=== PATIENT | male | born 1960 | race Caucasian/White ===

== ENCOUNTER → 2021-04-08 10:54 | Outpatient (CLI) | payer BC, SELFPAY ==
--- NOTE | ~2021-04-08 | CT_ITS ---
EXAMINATION: CT abdomen pelvis wo con DATE: 04/08/2021 11:32 INDICATION: Unspecified abdominal pain TECHNIQUE: Computed tomography (CT) of the abdomen and pelvis was performed without intravenous contr ast. The dose-length product (DLP) was 1249.54 mGy-cm. Automated exposure control and iterative recon struction technique were employed. COMPARISON: None FINDINGS: Minimal dependent atelectasis is present in the lung bases. The heart size is normal. The l iver, spleen, pancreas, gallbladder, and adrenal glands are normal. There are multiple nonobstructing stones of the right kidney which measure up to 7 mm. Multiple nonobstructing stones of the left kidn ey measure up to 5 mm. No stones are present in the ureters or bladder. There is no hydronephrosis or hydroureter. No pathologically enlarged abdominal or pelvic lymph nodes are identified. There is no free intraperitoneal gas or evidence of bowel obstruction. There is moderate lumbar spondylosis. Ther e is a fat-containing umbilical hernia. IMPRESSION: 1. No CT correlate for the patient's symptoms. 2. Bilateral nonobstructing nephrolithiasis. Reviewed, dictated and finalized at location B.
== END ==
PROVIDERS: PCP Family Medicine; Visit Provider Family Medicine
DX: N20.0 Calculus of kidney (principal); R10.9 Unspecified abdominal pain; M47.816 Spondylosis without myelopathy or radiculopathy, lumbar region; K42.9 Umbilical hernia without obstruction or gangrene
CPT/HCPCS: 74176

== ENCOUNTER → 2021-11-09 13:47 | Outpatient (CLI) | payer BC, SELFPAY ==
--- NOTE | ~2021-11-09 | MR_ITS ---
EXAMINATION: MR lumbar spine wo/w con DATE: 11/09/2021 14:41 INDICATION: Stenosis of lateral recess of lumbar spine. Low back pain. TECHNIQUE: Magnetic resonance imaging (MRI) of the lumbar spine was performed without and with 20 mL MultiHance intravenous contrast. COMPARISON: CT abdomen and pelvis 04/08/21 FINDINGS: There is 6 degrees levocurvature of lumbar spine. There is 3 mm anterolisthesis of L4 on L5 . There is increased T2-weighted signal intensity enhancement of the L4 and L5 vertebral bodies cente red at the L4-L5 disc. There is a focal defect in the L4 inferior endplate cortex that was present on the prior CT. There is mildly decreased disc height at L3-L4 and L4-L5. There is increased T2-weight ed signal intensity and enhancement in the disc on the left posteriorly. The distal spinal cord signa l intensity is normal. The conus medullaris is at L1-L2. The following disc levels are specifically d iscussed: L1-L2: The disc does not extend beyond the endplate margin. There is mild bilateral facet joint osteo arthritis. There is no neural foraminal stenosis. There is no central canal stenosis. L2-L3: There is a left foraminal extrusion. There is mild bilateral facet joint osteoarthritis. There is mild left neural foraminal stenosis. There is no central canal stenosis. L3-L4: The disc is mildly bulging. There is mild bilateral facet joint osteoarthritis. There is mild bilateral neural foraminal stenosis. There is no central canal stenosis. L4-L5: The disc is bulging and has an annular fissure. There is severe bilateral facet joint osteoart hritis. There is mild bilateral neural foraminal stenosis. There is enhancing granulation tissue in t he neural foramina and epidural space. There is contrast enhancement in the paraspinal regions and ar ound the posterior elements, consistent with recent surgery at this level. There is mild central roman l stenosis. There is moderate stenosis of the lateral recesses. L5-S1: The disc does not extend beyond the endplate margin. There is moderate right and severe left f acet joint osteoarthritis. There is mild left neural foraminal stenosis. There is no central canal st enosis. IMPRESSION: 1. Surgical changes at L4-L5 with abnormal signal in the disc and [id number] inflammation of the adjacent vertebral bodies and surrounding soft tissues. Correlate clinically for discitis/oste omyelitis. 2. Mild lumbar spondylosis. Reviewed, dictated and finalized at location A. IMPRESSION: 1. Surgical changes at L4-L5 with abnormal signal in the disc and greater-than- expected inflammation of the adjacent vertebral bodies and surrounding soft tis sues. Correlate clinically for discitis/osteomyelitis. 2. Mild lumbar spondylosis.
[2021-11-09 14:19] LABS: Estimated Glomerular Filt Rate 52
== END ==
PROVIDERS: PCP Family Medicine; Visit Provider Urology
DX: M48.061 Spinal stenosis, lumbar region without neurogenic claudication (principal); Z98.890 Other specified postprocedural states; M47.816 Spondylosis without myelopathy or radiculopathy, lumbar region
CPT/HCPCS: 72158; A9577

== ENCOUNTER 2022-05-24 10:27 | Outpatient (CLI) | payer BC, SELFPAY ==
--- NOTE | 2022-05-24 10:34 | ECG_ITS ---
Measurements Intervals [place] Rate: 62 P: 40 LA: 170 QRS: 11 QRSD: 106 T: 28 QT: 401 QTc: 409 Interpretive Statements SINUS RHYTHM NORMAL ECG NO PREVIOUS ECG AVAILABLE FOR COMPARISON Electronically Signed On 05-24-2022 15:34:15 VICE PRESIDENT OF PRODUCT MARKETING by Serjio Moraes M.D.
== END 2022-05-24 10:28 | disposition home or self-care (01) ==
LOC: ANHCARD 10:29
PROVIDERS: PCP Family Medicine; Visit Provider Neurological Surgery
DX: Z01.818 Encounter for other preprocedural examination (principal)
CPT/HCPCS: 93005

== ENCOUNTER 2022-06-09 09:53 | Outpatient (CLI) | payer BC, SELFPAY ==
[2022-06-09 10:54] LABS: Anion Gap 7 mmol/L (8-16); Blood Urea Nitrogen 24 mg/dL (9-20); Calcium 9.5 mg/dL (8.4-10.2); Carbon Dioxide 28 mmol/L (22-30); Chloride 105 mmol/L (98-107); Estimated Glomerular Filt Rate 52; Glucose 131 mg/dL (65-110); Potassium 4.6 mmol/L (3.4-5.0); Sodium 140 mmol/L (137-145)
== END 2022-06-09 09:54 | disposition home or self-care (01) ==
PROVIDERS: Anesthesiology; PCP Family Medicine; Visit Provider Neurological Surgery
DX: M47.816 Spondylosis without myelopathy or radiculopathy, lumbar region (principal); Z79.899 Other long term (current) drug therapy; Z01.818 Encounter for other preprocedural examination
CPT/HCPCS: 36415; 80048; 86850; 86900; 86901

== ENCOUNTER 2022-06-28 16:49 | Inpatient (IN) | payer BC, SELFPAY ==
--- NOTE | 2022-06-01 11:03 | PC.NURSE ---
Addendum entered by Dilma Nathan RN 06/16/22 14:43: PT TO ARRIVE AT 1100 ON 06/28/22 FOR SURGERY AT 1300. Original Note: Report to the Outpatient Waiting Room, entrance under the green pavilion located off [facility], at time 6:30 on date 06/14/22. Planned Procedure Time: 8:30. Time changes happen often and if your time is changed the preop area will call you the afternoon before. - You and your visitor will be asked to self-screen and do not enter if you have any COVID symptoms. - Only one visitor is requested with a max of two and NO children visitors are allowed at this time. - The patient visitor may be requested to leave or wait in car when not with patient due to distancing restrictions. - A mask is REQUIRED within the hospital. Patients may have clear liquids (water, carbonated beverages, clear teas, apple juice) until 3 hours prior to surgery (5:30) with a maximum of 20 ounces. - No food from midnight until time of surgery Take the following medications with a SIP of water the morning of surgery: LYRICA, TIZANIDINE, OXYCODONE Medications to discontinue per physician: VITAMINS/SUPPLEMENTS Date to take last dose: 06/10/22 Please no make-up, nail slovenian, hairspray, perfume, deodorant, or body powder the day of surgery. No jewelry (including any body piercings) or valuables the day of surgery, leave them at home. Please take a shower or bath the night before, or the morning of, surgery with an antibacterial soap. Wear comfortable, loose fitting clothing. - Jewelry must be removed prior to entering the operating room. Rings and piercings that are not removed may be cut off. - The hospital will not accept responsibility for valuables. - Please leave all valuables, including medications, at home the day of surgery. If you are going home after surgery, a licensed septic pump truck driver must drive you home. - NO public transportation without another adult if you receive anesthesia. - We recommend that an adult stay with you for 24 hours following discharge. - We also recommend that you do not drive, make important decision, drink alcoholic beverages, or take any drugs that were not prescribed by your health care provider for at least 24 hours after your discharge time. Follow any additional instructions given to you from your surgeon. If you or anyone in your household have experienced Covid symptoms in the past week, please notify your surgeon or the nurse liaison at the phone number below for possible testing. Telephone instructions given to JONATHAN SLAUGHTER and asked if any additional questions and then verbalized understanding. Patient advised to call surgeon office or pre surgery nurse liaison [phone] if any additional questions.
[2022-06-01 11:15] VITALS: BMI 41.6
--- NOTE | 2022-06-16 14:43 | PC.NURSE ---
Pt states no changes in medications or health history since initial interview. New pre-op instructions reviewed with pt. Pt denies further questions regarding instructions at this time.
--- NOTE | 2022-06-27 14:16 | WPDANESEPPF ---
Anes - Initial Pre Proc Eval Procedure: Operation Date: 06/28/22 09:30 Proposed Procedures p L 4-5 Posterior Lumbar Interbody Fusion - Johnnie Espinal MD Date/Time: 06/27/22 14:16 Surgeon: Johnnie Espinal MD Pre Op Diagnosis: L4-5 Spondylosis Steve Neuroforaminal Stenosis Patient Data Age: 62 Gender: M Height: 1.78 m Weight: 131.6 kg Allergies Allergy/AdvReac Type Severity Reaction Status Date / Time shellfish derived Allergy Severe Anaphylaxis Verified 06/28/22 07:13 iodine Allergy Mild Anaphylaxis Verified 06/28/22 07:13 Home Medications Medication Instructions Recorded Confirmed Type amitriptyline 10 mg tablet 20 mg PO QHS 12/20/21 06/28/22 History irbesartan 300 mg tablet 300 mg PO HS 12/20/21 06/28/22 History melatonin 5 mg capsule 5 mg PO HS 12/20/21 06/28/22 History tamsulosin 0.4 mg capsule 0.4 mg PO HS 12/20/21 06/28/22 History testosterone 200 mg implant pellet 200 mg subcut ONCE 12/20/21 06/28/22 History Beet Root 1 tablet PO HS 06/01/22 06/28/22 History chlorthalidone 25 mg tablet 12.5 mg PO DAILY 06/01/22 06/28/22 History metformin 500 mg tablet,extended 500 mg PO HS 06/01/22 06/28/22 History release 24 hr oxycodone-acetaminophen 5 mg-325 1 tablet PO Q8H PRN Pain 06/01/22 06/28/22 History mg tablet pregabalin 100 mg capsule 150 mg PO QNOON 06/01/22 06/28/22 History pregabalin 100 mg capsule 300 mg PO BID 06/01/22 06/28/22 History rosuvastatin 10 mg tablet 10 mg PO HS 06/01/22 06/28/22 History tizanidine 4 mg tablet 4 mg PO TID 06/01/22 06/28/22 History turmeric 400 mg capsule 400 mg PO HS 06/01/22 06/28/22 History ECG: Date of Service: 05/24/22 Procedure(s): CA 12 lead EKG Accession Number(s): [id number] cc: ~ ? Measurements Intervals? [place]? Rate: ? 62 ? P:? 40 CO: ? 170? QRS:? 11 QRSD: ? 106? T:? 28 QT: ? 401? QTc:? 409? Interpretive Statements SINUS RHYTHM NORMAL ECG NO PREVIOUS ECG AVAILABLE FOR COMPARISON Electronically Signed On 05-24-2022 15:34:15 FINANCIAL ANALYST INTERN by Serjio Moraes M.D. Patient hx anesthesia problems: none Family hx anesthesia problems: none Results Review: All pre-operative results and documents have been reviewed as part of the pre-operative evaluation. [facility] Past Medical History Medical History (Updated 06/27/22 @ 14:18 by Roc Kemp MD) BPH (benign prostatic hyperplasia) Chronic narcotic use Diabetes Foraminal stenosis of lumbar region HTN (hypertension) Hypercholesterolemia Lumbar spondylosis Morbid obesity with BMI of 40.0-44.9, adult REGGIE on CPAP Spondylolisthesis at L4-L5 level Surgical History Surgical History (System 02/18/22 @ 09:19 by Peewee Blair) H/O eye surgery H/O knee surgery H/O shoulder surgery Hx of appendectomy Family History Family History (System 02/18/22 @ 09:19 by Peeewe Blair) Other Diabetes mellitus Heart disease Social History Social History (System 02/18/22 @ 09:19 by Peewee Blair) Smoking status: Never smoker Alcohol intake: current Alcohol use details: A COUPLE/YEAR Substance use: never Substance use type: does not use Living arrangements: with family Spiritual care concerns: No Anes - Eval Final PreProcedure Day of Procedure 06/27/22 14:16 Patient weight: morbidly obese Heart: regular rate and rhythm Lungs: clear to auscultation and normal air movement Airway: Mallampati scale class II Neurological: alert and oriented Last oral intake: >/= 8 hours ASA classification: III Emergent: no Anesthetic plan: proceed Anesthesia type and monitoring: general ETT Results Review: All pre-operative results and documents have been reviewed as part of the pre-operative evaluation. Informed Con
[2022-06-28] VITALS (23 sets, daily range): BP systolic 106–151; BP diastolic 70–103; PULSE 69–117; RESP 12–20; TEMP 36.1–37.2; O2SAT 92–100
--- NOTE | ~2022-06-28 | XR_ITS ---
EXAMINATION: XR lumbar spine 2-3V DATE: 07/05/2022 14:08 INDICATION: Assess spinal fusion instrumentation placement. TECHNIQUE: Anteroposterior and lateral views of the lumbar spine, and cone-down lateral view of the l umbosacral junction were obtained. COMPARISON: Lumbar spine MR dated FINDINGS: L4 laminectomy. Midline instrumented anterior and posterior L4-L5 spinal fusion with interbody bone g raft cages and bilateral vertical anna and pedicle screw fixations which are in expected position. No significant change in 2-3 mm anterolisthesis L4 on L5. Vertebral body heights are normal. Mild disc h eight loss at L3-L4. Preserved disc heights but with endplate osteophytes at a few levels in the lowe r thoracic and upper lumbar spine. Sacral arches are intact. No evident fractures. Mild bilateral sac roiliac osteoarthritis. There are few small renal stones, the largest measuring up to 3 mm, at the lo wer pole of the left kidney IMPRESSION: 1. L4 laminectomy and combined instrumented L4-L5 anterior and posterior spinal fusion with unchanged 2-3 mm anterolisthesis L4 on L5. 2. Mild lumbar and lower thoracic spondylosis. 3. Left nephrolithiasis. Reviewed, dictated and finalized at location A. COURSE BARRIER ATTENDANT
--- NOTE | ~2022-06-28 | XR_ITS ---
EXAMINATION: XR fluoroscopy no charge DATE: 06/28/2022 13:42 INDICATION: L4-L5 posterior lumbar intervertebral fusion. TECHNIQUE: A single lateral fluoroscopic views of lumbar spine was obtained. I was not present. Fluor oscopy exposure time was 7 seconds. COMPARISON: Lumbar spine MRI 11/09/2021 FINDINGS: There is 3 mm anterolisthesis of L4 on L5. There are changes of anterior and posterior fusi on procedures at L4-L5 with interbody devices and pedicle screws. There is mildly decreased disc heig ht at L3-L4. IMPRESSION: 1. Anterior and posterior fusion procedures at L4-L5. Reviewed, dictated and finalized at location A. UIT BOARD ASSEMBLER
[2022-06-28] MEDS: LACTATED RINGERS 1,000 ML 30 ML IV CONT ×2 (07:56→14:01)
--- NOTE | 2022-06-28 09:43 | PM.IMHP ---
H&P: HPI History of Present Illness Date/Time: 06/28/22 09:43 Chief Complaint: Back and leg pain Narrative: Mr. Lake is a 62-year-old gentleman with back and leg pain related to pathology at L4-5 and presents for posterior lumbar interbody fusion. He has not changed appreciably since we last saw him. He is not having any bowel or bladder difficulty. He is not having specific muscle group weakness or dermatomal numbness. Review of Systems Review of Systems: Patient denies shortness of breath, cough, fever, chills, nausea, vomiting, weight loss, weight gain, chest pain, dysuria. He has back and leg pain and back stiffness as above. His review of systems otherwise negative on 12 systems except as noted PMFSH Past Medical History Medical History BPH (benign prostatic hyperplasia) Chronic narcotic use Diabetes Foraminal stenosis of lumbar region HTN (hypertension) Hypercholesterolemia Lumbar spondylosis Morbid obesity with BMI of 40.0-44.9, adult REGGIE on CPAP Spondylolisthesis at L4-L5 level Surgical History Surgical History H/O eye surgery H/O knee surgery H/O shoulder surgery Hx of appendectomy Family History Family History Other Diabetes mellitus Heart disease Social History Social History Smoking status: Never smoker Alcohol intake: current Alcohol use details: A COUPLE/YEAR Substance use: never Substance use type: does not use Living arrangements: with family Spiritual care concerns: No Meds Home Medications and Allergies Home Medications Medication Instructions Recorded Confirmed Type amitriptyline 10 mg tablet 20 mg PO QHS 12/20/21 06/28/22 History irbesartan 300 mg tablet 300 mg PO HS 12/20/21 06/28/22 History melatonin 5 mg capsule 5 mg PO HS 12/20/21 06/28/22 History tamsulosin 0.4 mg capsule 0.4 mg PO HS 12/20/21 06/28/22 History testosterone 200 mg implant pellet 200 mg subcut ONCE 12/20/21 06/28/22 History Beet Root 1 tablet PO HS 06/01/22 06/28/22 History chlorthalidone 25 mg tablet 12.5 mg PO DAILY 06/01/22 06/28/22 History metformin 500 mg tablet,extended 500 mg PO HS 06/01/22 06/28/22 History release 24 hr oxycodone-acetaminophen 5 mg-325 1 tablet PO Q8H PRN Pain 06/01/22 06/28/22 History mg tablet pregabalin 100 mg capsule 150 mg PO QNOON 06/01/22 06/28/22 History pregabalin 100 mg capsule 300 mg PO BID 06/01/22 06/28/22 History rosuvastatin 10 mg tablet 10 mg PO HS 06/01/22 06/28/22 History tizanidine 4 mg tablet 4 mg PO TID 06/01/22 06/28/22 History turmeric 400 mg capsule 400 mg PO HS 06/01/22 06/28/22 History Allergies Allergy/AdvReac Type Severity Reaction Status Date / Time shellfish derived Allergy Severe Anaphylaxis Verified 06/28/22 07:13 iodine Allergy Mild Anaphylaxis Verified 06/28/22 07:13 Vital Signs Vital Signs - 24 hr 06/28/22 07:10 Temperature 97.0 F L Pulse Rate 69 Respiratory Rate 20 Blood Pressure 106/77 Pulse Oximetry 98 Oxygen Delivery Room Air Exam Narrative: Strength is 5/5 in all muscle groups of the bilateral lower extremities. Sensation is intact to light touch throughout extremities. Regular rate and rhythm Breathing is unlabored. He is able to speak complete sentences without difficulty. Assessment and Plan Assessment and plan (1) Foraminal stenosis of lumbar region: Code(s): M48.061 - Spinal stenosis, lumbar region without neurogenic claudication Status: Acute (2) Spondylolisthesis at L4-L5 level: Code(s): M43.16 - Spondylolisthesis, lumbar region Status: Acute (3) Lumbar spondylosis: Code(s): M47.816 - Spondylosis without myelopathy or radiculopathy, lumbar region Status: Acute Plan Mr. Lake is a 62-year-old gentleman w
--- NOTE | 2022-06-28 09:45 | WPDHPUPDATE1 ---
History and Physical Update Update Date/Time: 06/28/22 09:45 History and Physical has been reviewed, including an updated exam of the patient. There are NO changes in the patient's condition. Risks, benefits, and alternatives have been discussed and questions answered. Patient agrees to proceed with procedure.
[2022-06-28] MEDS: ceFAZolin 3 GM/D5W 100 ML 100 ML IVPB (10:14)
--- NOTE | 2022-06-28 10:46 | SUR.OPER ---
Patient wedding band on left ring finger discovered during induction of anesthesia. Patient stated he is unable to remove wedding band and declined cutting, Preop RN notified to obtain waiver from patient's spouse as patient had already received anesthetics
[2022-06-28] MEDS: BUPIVACAINE/EPINEPHRINE 0.5% 30 ML VIAL INFILTRATE (11:02)
[2022-06-28 11:39] LABS: Glucose Point of Care 105 mg/dl (65-105)
[2022-06-28 14:11] LABS: Glucose Point of Care 160 mg/dl (65-105)
[2022-06-28] MEDS: fentaNYL CITRATE INJ (*CRX) 100 MCG/2 ML VIAL 25 MCG IV PUSH ×4 (14:30→15:06)
[2022-06-28] MEDS: HYDROmorphone HCL INJ (*CRX) 1 MG/ML SYR 0.5 MG IV PUSH ×6 (15:39→22:26)
--- NOTE | 2022-06-28 16:00 | SUR.PHASEI ---
1555: Patient meets PACU discharge criteria, unit bed unavailable at this time. Patient placed in extended recovery status.
--- NOTE | 2022-06-28 17:05 | ADMGEN ---
This patient, Zbigniew Lake III, was admitted to Medical Room 342-01. Patient/family oriented to hospital policies and general routines including ID bracelet, bed and alarms, visiting hours, pain management, procedures, bathroom and other care routines, personal items, smoking policy, room service/diet, and visiting hours. Information on how to activate the Rapid Response Team has been discussed. Patient/Family are encouraged to report perceived risks to care and to ask questions if they do not understand what they are told or what they should do.
--- NOTE | 2022-06-28 17:06 | PC.NURSE ---
Pt received to room 342 at 1705. Report was taken from Ana in PACU. is at bedside
[2022-06-28] MEDS: PREGABALIN (*CRX) 75 MG CAPSULE 300 MG PO (18:34)
[2022-06-28] MEDS: oxyCODONE/ACETAMINOPHEN (*CRX) 10-325 MG TABLET 1 TAB PO ×2 (18:49→23:26)
[2022-06-28] MEDS: MELATONIN 5 MG TABLET PO (20:20)
[2022-06-28] MEDS: ROSUVASTATIN 10 MG TABLET PO (20:20)
[2022-06-28] MEDS: metFORMIN HCL XR 500 MG TAB.SR.24H PO (20:20)
[2022-06-28] MEDS: IRBESARTAN 150 MG TABLET 300 MG PO (20:20)
[2022-06-28] MEDS: AMITRIPTYLINE HCL 10 MG TABLET 20 MG PO (20:20)
[2022-06-28] MEDS: DOCUSATE SODIUM 100 MG CAPSULE PO (20:20)
[2022-06-28] MEDS: TAMSULOSIN HCL 0.4 MG CAPSULE PO (20:20)
[2022-06-28] MEDS: TIZANIDINE HCL 2 MG TABLET PO (22:26)
[2022-06-29] MEDS: HYDROmorphone HCL INJ (*CRX) 1 MG/ML SYR 0.5 MG IV PUSH ×4 (00:40→10:52)
[2022-06-29 02:10] VITALS: PULSE 97; O2SAT 99
[2022-06-29] MEDS: oxyCODONE/ACETAMINOPHEN (*CRX) 10-325 MG TABLET 1 TAB PO ×3 (03:40→15:37)
[2022-06-29 03:49] VITALS: BP 130/74; PULSE 98; RESP 18; TEMP 36.7; O2SAT 98
--- NOTE | 2022-06-29 07:36 | WPDANESPN ---
Anes - Prog Note Post-Op Date/Time: 06/29/22 07:36 Cardiovascular status: normal Respiratory status: normal Airway patency: baseline Mental status: baseline Post-Op hydration status: normal Vital Signs: Last Vital Signs Temp 98.1 F 06/29/22 03:49 Pulse 98 06/29/22 03:49 Resp 18 06/29/22 03:49 BP 130/74 06/29/22 03:49 Pulse Ox 98 06/29/22 03:49 O2 Del Method Autopap 06/29/22 02:10 O2 Flow Rate 3 06/28/22 20:00 Pain Score (VAS): 5 I/O: Intake & Output 06/28/22 06/28/22 06/29/22 15:59 23:59 07:59 Intake Total 0 900 Output Total 330 Balance -330 900 06/28/22 06/28/22 09:11 14:09 POC Capillary Glucose 105 160 H Patient Feedback: Patient satisfied with anesthetic care.
[2022-06-29 07:49] VITALS: BP 164/91; PULSE 100; RESP 18; TEMP 36.3; O2SAT 96
[2022-06-29] MEDS: TIZANIDINE HCL 2 MG TABLET PO ×2 (08:28→20:48)
[2022-06-29] MEDS: ONDANSETRON INJ 4 MG/2 ML VIAL IV PUSH (09:22)
[2022-06-29] MEDS: CHLORTHALIDONE 12.5 MG TAB PO (09:48)
[2022-06-29] MEDS: DOCUSATE SODIUM 100 MG CAPSULE PO ×2 (09:48→20:48)
[2022-06-29] MEDS: PREGABALIN (*CRX) 75 MG CAPSULE 300 MG PO ×2 (09:49→17:39)
[2022-06-29 11:49] VITALS: BP 137/67; PULSE 91; RESP 18; TEMP 36.4; O2SAT 98
[2022-06-29] MEDS: HYDROmorphone HCL INJ (*CRX) 1 MG/ML SYR IV PUSH ×4 (13:21→23:41)
--- NOTE | 2022-06-29 16:09 | PC.NURSE ---
Pt has on going complaints of headache despite medications dosage changes. Pt states he has a history of migraines. Dressing has been dry and intact upon assessment with no signs of drainage. is aware and is to see pt today.
[2022-06-29 20:00] VITALS: PULSE 82; RESP 20; O2SAT 93
[2022-06-29] MEDS: ROSUVASTATIN 10 MG TABLET PO (20:48)
[2022-06-29] MEDS: metFORMIN HCL XR 500 MG TAB.SR.24H PO (20:48)
[2022-06-29] MEDS: AMITRIPTYLINE HCL 10 MG TABLET 20 MG PO (20:48)
[2022-06-29] MEDS: IRBESARTAN 150 MG TABLET 300 MG PO (20:48)
[2022-06-29] MEDS: MELATONIN 5 MG TABLET PO (20:48)
--- NOTE | 2022-06-29 20:48 | W.PM.PROC2 ---
Procedure Note - Detailed Date of Procedure 06/29/22 Pre-op Diagnosis L4-5 Spondylosis Steve Neuroforaminal Stenosis Post-op Diagnosis Same Procedure Performed L4-5 complete laminectomy and bilateral facetectomy, L4-5 complete diskectomy and interbody arthrodesis utilizing titanium interbody device and local autograft, L4-5 pedicle screw instrumentation Surgeon Johnnie Espinal MD Change Number Operator Rosa Anesthesia General Indications Zbigniew is a 62-year-old gentleman with back and leg pain related to the above pathology presents for decompression fusion at L4-[address] posterior lumbar interbody fusion. Description of Procedure The patient was brought to the operating room in the supine position, was sedated, intubated and placed under general anesthesia in routine fashion. He was then turned into the prone position on a Loki frame. The area of operation on his back was examined, marked for incision, prepped and draped in routine sterile fashion. Incision was marked over the L4 and L5 spinous processes in the midline. This area was injected with 0.5% lidocaine with [id number] epinephrine. Intravenous antibiotics given prior to incision. Incision was made with a 10 blade scalpel down to the lumbodorsal fascia. A subperiosteal dissection of the muscle and soft tissue away from spinous process and lamina at L4-L5 bilaterally was performed with a subperiosteal elevator and Bovie cautery. A verifying x-rays obtained to verify the level of operation. The L4 spinous process was removed to the lower sleeve rongeur. Kerrison punches, curved curettes and a Leksell rongeur were used to remove lamina in the midline until the soft contents of the canal encountered. A Midas Mike drill was used to resect the pars bilaterally. The inferior taken process and facet of L4 could then be removed bilaterally. These plus the spinous process were stripped free of soft tissue and morselized for later use as interbody autograft. Kerrison punches and curved curettes were used to define a plane with the dura and removed bone and ligament flush with the pedicle and through the foramen widely decompressing the exiting nerve roots. With the thecal sac retracted and protected the disc spaces entered bilaterally using an 11 blade scalp. Scrapers of various sizes, curettes of various configurations, a pituitary rongeur and a rasp were used to remove as much cartilaginous endplate and disc material as possible down bleeding cortical 5 surfaces on the opposing bones. During this part of the operation on the right side dura was found to be adherant to the anterior aspect of the canal and the complex dural tear occurred on the right side. Upon inspection it did not appear possible to completely repair the tear. Nerve roots were apparent but no injury to nerve roots were noted. At the end of the case this was repaired by placing DuraGen against the torn area wrapping it underneath the dura and placing fat obtained from the subcutaneous area against this DuraGen and apllying DuraSeal over it. Because of the tear a single long interbody device was placed from the left after the disc space was filled with local autograft bone medially and anteriorly. The interbody device had also been filled with local autograft bone. Pedicle screw instrumentation was performed by observing and palpating the pedicle while a hole was made in the superior to the process above the pedicle using a Midas Mike drill. Pedicle was then cannulated with a pedicle probe, checked for continuity with ball probe, tapped with a 5.5 mm tap and a 6.5 x 50 mm screw was placed into each pedicle on each side. Alcon placed into the screw heads and secured in position using the caps for that purpose. These were definitively tightened with a torque and anti torque device. Verifying x-rays obtained to verify good position of the pedicle screws and the interbody device. This was confirmed. Wound was copiously irrigated with ba
[2022-06-29] MEDS: TAMSULOSIN HCL 0.4 MG CAPSULE PO (20:49)
[2022-06-29 20:55] VITALS: BP 139/68; PULSE 82; RESP 20; TEMP 36.9; O2SAT 93
--- NOTE | 2022-06-29 21:22 | WPDNEUROSGPN ---
Progress Note: A&P Assessment and Plan (1) Dural tear: Code(s): G96.11 - Dural tear Status: Acute (2) Foraminal stenosis of lumbar region: Code(s): M48.061 - Spinal stenosis, lumbar region without neurogenic claudication Status: Acute (3) Spondylolisthesis at L4-L5 level: Code(s): M43.16 - Spondylolisthesis, lumbar region Status: Acute (4) Lumbar spondylosis: Code(s): M47.816 - Spondylosis without myelopathy or radiculopathy, lumbar region Status: Acute Plan Mr. Lake is doing well his operation and his wound remains dry. He is having symptoms related to the dural tear. We will have him remain flat through the night tonight and assess his situation the morning. I prescribed Decadron for the discomfort in his leg and headache. I will given 10 mg now and 4 mg q.6 hours. He persists in having headache that we will have to slowly Begin the process of raising is set and having him ambulate. We will continue to watch his wound and dressing. Subjective Date/time seen: 06/29/22 21:22 Interval history: Mr. Lake is postop day 1 status post L4-5 posterior lumbar interbody fusion complicated by a complex dural tear. He has been flat in bed for our order. He is complaining of a significant headache and pain in his right lower extremity posteriorly when he turns or moves the leg. He has not had any leaking from his wound. He is not having any bowel or bladder difficulty. His legs are functioning normally. Exam Narrative: Strength is 5/5 in all muscle groups of the bilateral lower extremities. Sensation is intact to light touch throughout the lower extremities. His dressing and wound are clean, dry and intact. Objective Data Vital Signs Vital Signs: Vital Signs - 24 hr 06/28/22 23:49 06/28/22 23:54 06/29/22 02:10 Temperature 98.6 F Pulse Rate 98 101 H 97 Respiratory Rate 20 Blood Pressure 129/70 Pulse Oximetry 99 98 99 Oxygen Delivery Autopap Autopap 06/29/22 03:49 06/29/22 07:49 06/29/22 11:49 Temperature 98.1 F 97.4 F L 97.6 F Pulse Rate 98 100 91 Respiratory Rate 18 18 18 Blood Pressure 130/74 164/91 H 137/67 Pulse Oximetry 98 96 98 Oxygen Delivery 06/29/22 20:55 Temperature 98.4 F Pulse Rate 82 Respiratory Rate 20 Blood Pressure 139/68 Pulse Oximetry 93 Oxygen Delivery Intake/Output Intake/Output: Intake & Output 06/26/22 06/27/22 06/28/22 06/29/22 23:59 23:59 23:59 23:59 Intake Total 900 3870 Output Total 330 Balance 570 3870 Meds/Results Medications: Active Medications Generic Name Dose Route Start Last Admin Trade Name Freq PRN Reason Stop Dose Admin Al Hydrox/Mg Hydrox/Simethicone 20 ml 06/28/22 16:49 Mag Hydrox/Al Hydrox/Simeth 30 Ml Udc PO Q4H PRN Indigestion/Heartburn Amitriptyline HCl 20 mg 06/28/22 21:00 06/29/22 20:48 Amitriptyline Hcl 10 Mg Tablet PO 20 mg QHS VERONICA Administration Bisacodyl 10 mg 06/28/22 16:49 Bisacodyl 10 Mg Suppository RECTAL DAILY PRN Constipation Chlorthalidone 12.5 mg 06/29/22 09:00 06/29/22 09:48 Chlorthalidone 12.5 Mg Tab PO 12.5 mg DAILY VERONICA Administration Dexamethasone Sodium Phosphate 4 mg 06/30/22 00:00 Dexamethasone Sod Phos Inj 4 Mg/Ml Vial IV PUSH Q6HR VERONICA Docusate Sodium 100 mg 06/28/22 21:00 06/29/22 20:48 Docusate Sodium 100 Mg Capsule PO 100 mg Q12HR VERONICA Administration Hydromorphone HCl 1 mg 06/29/22 11:30 06/29/22 20:47 Hydromorphone Hcl Inj (*Crx) 1 Mg/Ml Syr IV PUSH 1 mg Q3H PRN Administration Pain Rated 7-10 Cefazolin Sodium 1 gm in 50 mls @ 100 mls/hr 06/28/22 18:00 06/29/22 18:09 Ancef 1 Gm/D5w 50 Ml Pm IVPB Infused Q8H VERONICA Infusion Irbesartan 300 mg 06/28/22 21:00 06/29/22 20:48 Irbesartan 150 Mg Tablet PO 300 mg HS VERONICA Administration Melatonin 5 mg 06/28/22 21:00 06/29/22 20:48 Melatonin 5 Mg Tablet PO 5
[2022-06-29] MEDS: DEXAMETHASONE SOD PHOS INJ 4 MG/ML VIAL IV PUSH (23:41)
[2022-06-30] MEDS: HYDROmorphone HCL INJ (*CRX) 1 MG/ML SYR IV PUSH ×6 (04:14→21:30)
[2022-06-30 05:40] VITALS: BP 128/67; PULSE 81; RESP 18; TEMP 36.7; O2SAT 96
[2022-06-30] MEDS: DEXAMETHASONE SOD PHOS INJ 4 MG/ML VIAL IV PUSH ×3 (06:45→18:31)
[2022-06-30] MEDS: PREGABALIN (*CRX) 75 MG CAPSULE 300 MG PO ×2 (09:10→18:30)
[2022-06-30] MEDS: DOCUSATE SODIUM 100 MG CAPSULE PO ×2 (09:10→20:46)
[2022-06-30] MEDS: CHLORTHALIDONE 12.5 MG TAB PO (09:10)
[2022-06-30] MEDS: ONDANSETRON INJ 4 MG/2 ML VIAL IV PUSH (12:04)
[2022-06-30] MEDS: PREGABALIN (*CRX) 75 MG CAPSULE 150 MG PO (12:05)
[2022-06-30 20:36] VITALS: BP 129/68; PULSE 76; RESP 18; TEMP 36.9; O2SAT 93
[2022-06-30] MEDS: TIZANIDINE HCL 2 MG TABLET PO (20:45)
[2022-06-30] MEDS: AMITRIPTYLINE HCL 10 MG TABLET 20 MG PO (20:45)
[2022-06-30] MEDS: IRBESARTAN 150 MG TABLET 300 MG PO (20:45)
[2022-06-30] MEDS: MELATONIN 5 MG TABLET PO (20:45)
[2022-06-30] MEDS: ROSUVASTATIN 10 MG TABLET PO (20:46)
[2022-06-30] MEDS: TAMSULOSIN HCL 0.4 MG CAPSULE PO (20:46)
[2022-06-30] MEDS: metFORMIN HCL XR 500 MG TAB.SR.24H PO (20:46)
[2022-07-01] MEDS: HYDROmorphone HCL INJ (*CRX) 1 MG/ML SYR IV PUSH ×6 (01:00→21:40)
[2022-07-01] MEDS: DEXAMETHASONE SOD PHOS INJ 4 MG/ML VIAL IV PUSH ×4 (01:00→17:25)
[2022-07-01 06:01] VITALS: BP 128/63; PULSE 66; RESP 18; TEMP 36.6; O2SAT 94
[2022-07-01] MEDS: PREGABALIN (*CRX) 75 MG CAPSULE 300 MG PO ×2 (08:38→17:22)
[2022-07-01] MEDS: CHLORTHALIDONE 12.5 MG TAB PO (08:38)
[2022-07-01] MEDS: DOCUSATE SODIUM 100 MG CAPSULE PO ×2 (08:38→21:39)
[2022-07-01 08:40] VITALS: PULSE 66; RESP 18; O2SAT 94
[2022-07-01] MEDS: PREGABALIN (*CRX) 75 MG CAPSULE 150 MG PO (12:38)
[2022-07-01 13:51] VITALS: BP 114/57; PULSE 80; RESP 16; TEMP 36.8; O2SAT 96
[2022-07-01 19:48] VITALS: BP 148/75; PULSE 93; RESP 18; TEMP 37.1; O2SAT 93
[2022-07-01 21:25] VITALS: PULSE 90; O2SAT 95
[2022-07-01] MEDS: MELATONIN 5 MG TABLET PO (21:39)
[2022-07-01] MEDS: metFORMIN HCL XR 500 MG TAB.SR.24H PO (21:39)
[2022-07-01] MEDS: TAMSULOSIN HCL 0.4 MG CAPSULE PO (21:39)
[2022-07-01] MEDS: IRBESARTAN 150 MG TABLET 300 MG PO (21:39)
[2022-07-01] MEDS: ROSUVASTATIN 10 MG TABLET PO (21:39)
[2022-07-01] MEDS: AMITRIPTYLINE HCL 10 MG TABLET 20 MG PO (21:40)
--- NOTE | 2022-07-01 22:11 | WPDNEUROSGPN ---
Progress Note: A&P Assessment and Plan (1) Foraminal stenosis of lumbar region: Code(s): M48.061 - Spinal stenosis, lumbar region without neurogenic claudication Status: Acute (2) Spondylolisthesis at L4-L5 level: Code(s): M43.16 - Spondylolisthesis, lumbar region Status: Acute (3) Lumbar spondylosis: Code(s): M47.816 - Spondylosis without myelopathy or radiculopathy, lumbar region Status: Acute Plan Zbigniew is doing better status post L4-5 posterior lumbar interbody fusion postop day 3. He will continue flat for now but may start to elevate his head as he can tolerate it. Likely, his wound has remained dry and intact. Anticipate that he will be here through the and perhaps leave Monday. That is, if his headaches resolved completely. Subjective Date/time seen: 07/01/22 22:11 Interval history: Is Zbigniew is now postop day 3 status post L4-5 posterior lumbar interbody fusion. He is feeling better today. Discomfort in his head is abating. He was able to sit up for about 10 minutes today. He has had no leaking from his back. He is not having bowel bladder or other constitutional problems. He is eager to have a bowel movement. Exam Narrative: strength is 5/5 in all muscle groups of the bilateral lower extremities. Sensation is intact to light touch throughout the lower extremities. His dressing is clean, dry and intact. There is no leaking from the wound. Objective Data Vital Signs Vital Signs: Vital Signs - 24 hr 07/01/22 06:01 07/01/22 08:40 07/01/22 13:51 Temperature 97.8 F 98.2 F Pulse Rate 66 66 80 Respiratory Rate 18 18 16 Blood Pressure 128/63 114/57 L Pulse Oximetry 94 94 96 Oxygen Delivery Room Air 07/01/22 19:48 Temperature 98.7 F Pulse Rate 93 Respiratory Rate 18 Blood Pressure 148/75 H Pulse Oximetry 93 Oxygen Delivery Intake/Output Intake/Output: Intake & Output 06/28/22 06/29/22 06/30/22 07/01/22 23:59 23:59 23:59 23:59 Intake Total 900 3870 590 1310 Output Total 330 1000 900 Balance 570 3870 -410 410 Meds/Results Medications: Active Medications Generic Name Dose Route Start Last Admin Trade Name Freq PRN Reason Stop Dose Admin Al Hydrox/Mg Hydrox/Simethicone 20 ml 06/28/22 16:49 Mag Hydrox/Al Hydrox/Simeth 30 Ml Udc PO Q4H PRN Indigestion/Heartburn Amitriptyline HCl 20 mg 06/28/22 21:00 06/30/22 20:45 Amitriptyline Hcl 10 Mg Tablet PO 20 mg QHS VERONICA Administration Bisacodyl 10 mg 06/28/22 16:49 Bisacodyl 10 Mg Suppository RECTAL DAILY PRN Constipation Chlorthalidone 12.5 mg 06/29/22 09:00 07/01/22 08:38 Chlorthalidone 12.5 Mg Tab PO 12.5 mg DAILY VERONICA Administration Dexamethasone Sodium Phosphate 4 mg 06/30/22 00:00 07/01/22 17:25 Dexamethasone Sod Phos Inj 4 Mg/Ml Vial IV PUSH 4 mg Q6HR VERONICA Administration Docusate Sodium 100 mg 06/28/22 21:00 07/01/22 21:39 Docusate Sodium 100 Mg Capsule PO 100 mg Q12HR VERONICA Administration Hydromorphone HCl 1 mg 06/29/22 11:30 07/01/22 21:40 Hydromorphone Hcl Inj (*Crx) 1 Mg/Ml Syr IV PUSH 1 mg Q3H PRN Administration Pain Rated 7-10 Irbesartan 300 mg 06/28/22 21:00 07/01/22 21:39 Irbesartan 150 Mg Tablet PO 300 mg HS VERONICA Administration Melatonin 5 mg 06/28/22 21:00 07/01/22 21:39 Melatonin 5 Mg Tablet PO 5 mg HS VERONICA Administration Metformin HCl 500 mg 06/28/22 21:00 07/01/22 21:39 Metformin Hcl Xr 500 Mg Tab.Sr.24h PO 500 mg HS VERONICA Administration Non-Formulary Medication 200 mg 06/28/22 16:49 Testosterone SUB-Q 07/28/22 16:48 ONCE VERONICA Ondansetron HCl 4 mg 06/28/22 16:49 06/30/22 12:04 Ondansetron Inj 4 Mg/2 Ml Vial IV PUSH 4 mg Q8H PRN Administration Nausea And Vomiting Oxycodone/Acetaminophen 1 tablet 06/28/22 16:49 Oxycodone/Acetaminophen (*Crx) 5-325 Mg Tablet PO Q4H PRN Mild Pain (1-3)
[2022-07-02 01:18] VITALS: PULSE 92; O2SAT 97
[2022-07-02] MEDS: DEXAMETHASONE SOD PHOS INJ 4 MG/ML VIAL IV PUSH ×5 (01:18→23:15)
[2022-07-02 05:39] VITALS: BP 121/74; PULSE 83; RESP 18; TEMP 36.6; O2SAT 93
[2022-07-02] MEDS: HYDROmorphone HCL INJ (*CRX) 1 MG/ML SYR IV PUSH ×4 (05:39→23:15)
[2022-07-02] MEDS: PREGABALIN (*CRX) 75 MG CAPSULE 300 MG PO ×2 (08:48→16:31)
[2022-07-02] MEDS: CHLORTHALIDONE 12.5 MG TAB PO (08:48)
[2022-07-02] MEDS: DOCUSATE SODIUM 100 MG CAPSULE PO ×2 (08:49→19:47)
[2022-07-02] MEDS: TIZANIDINE HCL 2 MG TABLET PO (08:50)
[2022-07-02 09:50] VITALS: PULSE 83; RESP 18; O2SAT 94
[2022-07-02] MEDS: PREGABALIN (*CRX) 75 MG CAPSULE 150 MG PO (12:50)
--- NOTE | 2022-07-02 13:25 | WPDNEUROSGPN ---
Progress Note: A&P Assessment and Plan (1) Spondylolisthesis at L4-L5 level: Code(s): M43.16 - Spondylolisthesis, lumbar region Status: Acute (2) Dural tear: Code(s): G96.11 - Dural tear Status: Acute (3) Status post lumbar spinal fusion: Code(s): Z98.1 - Arthrodesis status Status: Acute Plan Mr. Lake is doing better today in terms of headache, and his lumbar incision remains dry. He is tolerating sitting with HOB at 30 degrees. We discussed that he should try to sit at this angle today to see how he tolerates this for a longer period of time. If he does well today, I believe we can increase the HOB more tomorrow. I have added Tums for his heart burn. We are planning for him to stay through the weekend to continue to monitor his incision and monitor for symptoms of CSF leak. Subjective Date/time seen: 07/02/22 13:25 Interval history: Minimal headache today but is having back back and groin pain. Denies any radicular leg pain or paresthesias. Pain medication is adequately heloping with his pain. He is currently able to tolerate sitting with HOB at about 30 degrees. Has not had a BM yet but is passing gas. He is having heart burn which he thinks is related to his previous nausea/vomiting Exam Narrative: Lumbar dressing is dry Full strength in lower extremities Sensation intact to light touch Objective Data Vital Signs Vital Signs: Vital Signs - 24 hr 07/01/22 13:51 07/01/22 19:48 07/02/22 01:18 Temperature 98.2 F 98.7 F Pulse Rate 80 93 92 Respiratory Rate 16 18 Blood Pressure 114/57 L 148/75 H Pulse Oximetry 96 93 97 Oxygen Delivery Autopap 07/01/22 21:25 07/02/22 05:39 07/02/22 09:50 Temperature 97.8 F Pulse Rate 90 83 83 Respiratory Rate 18 18 Blood Pressure 121/74 Pulse Oximetry 95 93 94 Oxygen Delivery Autopap Room Air Intake/Output Intake/Output: Intake & Output 06/29/22 06/30/22 07/01/22 07/02/22 23:59 23:59 23:59 23:59 Intake Total 3870 590 1310 480 Output Total 2568 374 2104 Balance 3870 -410 410 -720 Meds/Results Medications: Active Medications Generic Name Dose Route Start Last Admin Trade Name Freq PRN Reason Stop Dose Admin Al Hydrox/Mg Hydrox/Simethicone 20 ml 06/28/22 16:49 Mag Hydrox/Al Hydrox/Simeth 30 Ml Udc PO Q4H PRN Indigestion/Heartburn Amitriptyline HCl 20 mg 06/28/22 21:00 07/01/22 21:40 Amitriptyline Hcl 10 Mg Tablet PO 20 mg QHS VERONICA Administration Bisacodyl 10 mg 06/28/22 16:49 Bisacodyl 10 Mg Suppository RECTAL DAILY PRN Constipation Calcium Carbonate 500 mg 07/02/22 13:21 Calcium Carbonate (Tums) 500 Mg (200 Mg Elemental) PO Q6H PRN Indigestion Chlorthalidone 12.5 mg 06/29/22 09:00 07/02/22 08:48 Chlorthalidone 12.5 Mg Tab PO 12.5 mg DAILY VERONICA Administration Dexamethasone Sodium Phosphate 4 mg 06/30/22 00:00 07/02/22 12:50 Dexamethasone Sod Phos Inj 4 Mg/Ml Vial IV PUSH 4 mg Q6HR VERONICA Administration Docusate Sodium 100 mg 06/28/22 21:00 07/02/22 08:49 Docusate Sodium 100 Mg Capsule PO 100 mg Q12HR VERONICA Administration Hydromorphone HCl 1 mg 06/29/22 11:30 07/02/22 08:54 Hydromorphone Hcl Inj (*Crx) 1 Mg/Ml Syr IV PUSH 1 mg Q3H PRN Administration Pain Rated 7-10 Irbesartan 300 mg 06/28/22 21:00 07/01/22 21:39 Irbesartan 150 Mg Tablet PO 300 mg HS VERONICA Administration Melatonin 5 mg 06/28/22 21:00 07/01/22 21:39 Melatonin 5 Mg Tablet PO 5 mg HS VERONICA Administration Metformin HCl 500 mg 06/28/22 21:00 07/01/22 21:39 Metformin Hcl Xr 500 Mg Tab.Sr.24h PO 500 mg HS VERONICA Administration Non-Formulary Medication 200 mg 06/28/22 16:49 Testosterone SUB-Q 07/28/22 16:48 ONCE VERONICA Ondansetron HCl 4 mg 06/28/22 16:49 06/30/22 12:04 Ondansetron Inj 4 Mg/2 Ml Vial IV PUSH 4 mg Q8H PRN Administration Nausea And Vomiting Oxycodone/Acetaminophen 1 tabl
[2022-07-02 14:00] VITALS: BP 116/74; PULSE 88; RESP 16; TEMP 37.3; O2SAT 97
[2022-07-02] MEDS: oxyCODONE/ACETAMINOPHEN (*CRX) 10-325 MG TABLET 1 TAB PO (16:30)
[2022-07-02] MEDS: CALCIUM CARBONATE (TUMS) 500 MG (200 MG ELEMENTAL) PO ×2 (16:32→22:51)
[2022-07-02] MEDS: metFORMIN HCL XR 500 MG TAB.SR.24H PO (19:46)
[2022-07-02] MEDS: TAMSULOSIN HCL 0.4 MG CAPSULE PO (19:46)
[2022-07-02] MEDS: AMITRIPTYLINE HCL 10 MG TABLET 20 MG PO (19:46)
[2022-07-02] MEDS: ROSUVASTATIN 10 MG TABLET PO (19:46)
[2022-07-02] MEDS: MELATONIN 5 MG TABLET PO (19:47)
[2022-07-02] MEDS: IRBESARTAN 150 MG TABLET 300 MG PO (19:47)
[2022-07-02 19:50] VITALS: BP 147/88; PULSE 83; RESP 20; TEMP 37.1; O2SAT 96
[2022-07-02 23:47] VITALS: PULSE 84; O2SAT 98
[2022-07-03] MEDS: HYDROmorphone HCL INJ (*CRX) 1 MG/ML SYR IV PUSH ×2 (04:13→12:47)
[2022-07-03] MEDS: DEXAMETHASONE SOD PHOS INJ 4 MG/ML VIAL IV PUSH ×3 (06:50→17:17)
[2022-07-03 07:25] VITALS: BP 136/67; PULSE 64; RESP 18; TEMP 36.7; O2SAT 96
[2022-07-03] MEDS: PREGABALIN (*CRX) 75 MG CAPSULE 300 MG PO ×2 (08:54→17:16)
[2022-07-03] MEDS: CHLORTHALIDONE 12.5 MG TAB PO (08:55)
[2022-07-03] MEDS: CALCIUM CARBONATE (TUMS) 500 MG (200 MG ELEMENTAL) PO (08:55)
[2022-07-03] MEDS: DOCUSATE SODIUM 100 MG CAPSULE PO ×2 (08:56→20:30)
[2022-07-03 09:00] VITALS: PULSE 77; RESP 18; O2SAT 97
[2022-07-03] MEDS: oxyCODONE/ACETAMINOPHEN (*CRX) 10-325 MG TABLET 1 TAB PO (09:03)
[2022-07-03] MEDS: PREGABALIN (*CRX) 75 MG CAPSULE 150 MG PO (12:39)
[2022-07-03 14:00] VITALS: BP 137/56; PULSE 77; RESP 18; TEMP 36.7; O2SAT 97
--- NOTE | 2022-07-03 14:47 | WPDNEUROSGPN ---
Progress Note: A&P Assessment and Plan (1) Status post lumbar spinal fusion: Code(s): Z98.1 - Arthrodesis status Status: Acute (2) Dural tear: Code(s): G96.11 - Dural tear Status: Acute (3) Spondylolisthesis at L4-L5 level: Code(s): M43.16 - Spondylolisthesis, lumbar region Status: Acute Plan Mr. Lake seems to be doing well with respect to the durotomy with no significant headaches this weekend. His incision remains dry. I have encouraged him to continue to elevate the head of the bed this afternoon. I believe we should get him out of bed tomorrow with the assistance of physical therapy and at least into a chair. If he does well in the chair, we can start to mobilize him more in the room and in the halls. I will plan to remove the anglin catheter tomorrow morning as well. If he does well with mobilization, I expect he can discharge home on Monday. I relayed this plan to his nurse as well. Subjective Date/time seen: 07/03/22 14:47 Interval history: Mr. Lake is doing well today. He has no headache. His back and groin are somewhat bothering him, but the pain is controlled with medication. He denies any radicular leg pain. Exam Narrative: Incision and dressing are dry Full strength in lower extremities Sensation intact to light touch Objective Data Vital Signs Vital Signs: Vital Signs - 24 hr 07/02/22 19:50 07/02/22 23:47 07/03/22 07:25 Temperature 98.8 F 98.1 F Pulse Rate 83 84 64 Respiratory Rate 20 18 Blood Pressure 147/88 H 136/67 Pulse Oximetry 96 98 96 Oxygen Delivery Autopap 07/03/22 14:00 Temperature 98.1 F Pulse Rate 77 Respiratory Rate 18 Blood Pressure 137/56 L Pulse Oximetry 97 Oxygen Delivery Intake/Output Intake/Output: Intake & Output 06/30/22 07/01/22 07/02/22 07/03/22 23:59 23:59 23:59 23:59 Intake Total 590 1310 960 480 Output Total 9896 386 0609 Balance -410 410 -1040 480 Meds/Results Medications: Active Medications Generic Name Dose Route Start Last Admin Trade Name Freq PRN Reason Stop Dose Admin Al Hydrox/Mg Hydrox/Simethicone 20 ml 06/28/22 16:49 Mag Hydrox/Al Hydrox/Simeth 30 Ml Udc PO Q4H PRN Indigestion/Heartburn Amitriptyline HCl 20 mg 06/28/22 21:00 07/02/22 19:46 Amitriptyline Hcl 10 Mg Tablet PO 20 mg QHS VERONICA Administration Bisacodyl 10 mg 06/28/22 16:49 Bisacodyl 10 Mg Suppository RECTAL DAILY PRN Constipation Calcium Carbonate 500 mg 07/02/22 13:21 07/03/22 08:55 Calcium Carbonate (Tums) 500 Mg (200 Mg Elemental) PO 500 mg Q6H PRN Administration Indigestion Chlorthalidone 12.5 mg 06/29/22 09:00 07/03/22 08:55 Chlorthalidone 12.5 Mg Tab PO 12.5 mg DAILY VERONICA Administration Dexamethasone Sodium Phosphate 4 mg 06/30/22 00:00 07/03/22 12:39 Dexamethasone Sod Phos Inj 4 Mg/Ml Vial IV PUSH 4 mg Q6HR VERONICA Administration Docusate Sodium 100 mg 06/28/22 21:00 07/03/22 08:56 Docusate Sodium 100 Mg Capsule PO 100 mg Q12HR VERONICA Administration Hydromorphone HCl 1 mg 06/29/22 11:30 07/03/22 12:47 Hydromorphone Hcl Inj (*Crx) 1 Mg/Ml Syr IV PUSH 1 mg Q3H PRN Administration Pain Rated 7-10 Irbesartan 300 mg 06/28/22 21:00 07/02/22 19:47 Irbesartan 150 Mg Tablet PO 300 mg HS VERONICA Administration Melatonin 5 mg 06/28/22 21:00 07/02/22 19:47 Melatonin 5 Mg Tablet PO 5 mg HS VERONICA Administration Metformin HCl 500 mg 06/28/22 21:00 07/02/22 19:46 Metformin Hcl Xr 500 Mg Tab.Sr.24h PO 500 mg HS VERONICA Administration Non-Formulary Medication 200 mg 06/28/22 16:49 Testosterone SUB-Q 07/28/22 16:48 ONCE VERONICA Ondansetron HCl 4 mg 06/28/22 16:49 06/30/22 12:04 Ondansetron Inj 4 Mg/2 Ml Vial IV PUSH 4 mg Q8H PRN Administration Nausea And Vomiting Oxycodone/Acetaminophen 1 tablet 06/28/22 16:49 Oxycodone/Acetaminophen (*Crx) 5-325 Mg Tablet PO Q4H PRN
[2022-07-03] MEDS: oxyCODONE HCL (*CRX) 5 MG TAB IR 10 MG PO ×2 (17:28→21:35)
[2022-07-03] MEDS: ONDANSETRON INJ 4 MG/2 ML VIAL IV PUSH (19:07)
[2022-07-03] MEDS: TAMSULOSIN HCL 0.4 MG CAPSULE PO (20:30)
[2022-07-03] MEDS: ROSUVASTATIN 10 MG TABLET PO (20:30)
[2022-07-03] MEDS: ACETAMINOPHEN 500 MG TABLET 1000 MG PO (20:30)
[2022-07-03] MEDS: metFORMIN HCL XR 500 MG TAB.SR.24H PO (20:30)
[2022-07-03] MEDS: MELATONIN 5 MG TABLET PO (20:30)
[2022-07-03] MEDS: IRBESARTAN 150 MG TABLET 300 MG PO (20:30)
[2022-07-03] MEDS: AMITRIPTYLINE HCL 10 MG TABLET 20 MG PO (20:32)
[2022-07-03 21:22] VITALS: BP 130/74; PULSE 70; RESP 16; TEMP 37; O2SAT 99
[2022-07-04] MEDS: DEXAMETHASONE SOD PHOS INJ 4 MG/ML VIAL IV PUSH ×3 (01:14→20:33)
[2022-07-04] MEDS: oxyCODONE HCL (*CRX) 5 MG TAB IR 10 MG PO ×3 (06:32→20:34)
[2022-07-04 08:00] VITALS: RESP 16
[2022-07-04] MEDS: ACETAMINOPHEN 500 MG TABLET 1000 MG PO ×3 (09:29→20:35)
[2022-07-04] MEDS: PREGABALIN (*CRX) 75 MG CAPSULE 300 MG PO ×2 (09:29→16:26)
[2022-07-04] MEDS: DOCUSATE SODIUM 100 MG CAPSULE PO ×2 (09:29→20:35)
[2022-07-04] MEDS: CHLORTHALIDONE 12.5 MG TAB PO (09:29)
--- NOTE | 2022-07-04 11:05 | WPDNEUROSGPN ---
Progress Note: A&P Assessment and Plan (1) Status post lumbar spinal fusion: Code(s): Z98.1 - Arthrodesis status Status: Acute (2) Dural tear: Code(s): G96.11 - Dural tear Status: Acute (3) Spondylolisthesis at L4-L5 level: Code(s): M43.16 - Spondylolisthesis, lumbar region Status: Acute Plan Mr. Lake is overall doing well without signs of CSF leak at this time. I have encouraged him to be in the chair as much as possible today. I will start a Medrol dosepak given the right radicular buttock pain which is new since surgery. If he is doing well enough from a therapy standpoint, he could potentially discharge home tomorrow assuming there are no further signs of CSF leak. Subjective Date/time seen: 07/04/22 11:05 Interval history: Sitting up in chair today. Walked in the room with therapy. No headache but does have back pain and significant right buttock pain. Has not yet had a BM. Wright catheter was removed today. Exam Narrative: AOX4 Full strength in lower extremities Sensation intact to light touch Incision is dry Objective Data Vital Signs Vital Signs: Vital Signs - 24 hr 07/03/22 14:00 07/03/22 21:22 07/03/22 20:00 Temperature 98.1 F 98.6 F Pulse Rate 77 70 Respiratory Rate 18 16 Blood Pressure 137/56 L 130/74 Pulse Oximetry 97 99 Oxygen Delivery Room Air 07/04/22 08:33 07/04/22 08:53 07/04/22 08:00 Temperature Pulse Rate Respiratory Rate 16 Blood Pressure Pulse Oximetry Oxygen Delivery Room Air Room Air Room Air Intake/Output Intake/Output: Intake & Output 07/01/22 07/02/22 07/03/22 07/04/22 23:59 23:59 23:59 23:59 Intake Total 1310 960 720 120 Output Total 900 2000 Balance 410 -1040 720 120 Meds/Results Medications: Active Medications Generic Name Dose Route Start Last Admin Trade Name Freq PRN Reason Stop Dose Admin Acetaminophen 1,000 mg 07/03/22 15:00 07/04/22 09:29 Acetaminophen 500 Mg Tablet PO 1,000 mg Q6H VERONICA Administration Al Hydrox/Mg Hydrox/Simethicone 20 ml 06/28/22 16:49 Mag Hydrox/Al Hydrox/Simeth 30 Ml Udc PO Q4H PRN Indigestion/Heartburn Amitriptyline HCl 20 mg 06/28/22 21:00 07/03/22 20:32 Amitriptyline Hcl 10 Mg Tablet PO 20 mg QHS VERONICA Administration Bisacodyl 10 mg 06/28/22 16:49 Bisacodyl 10 Mg Suppository RECTAL DAILY PRN Constipation Calcium Carbonate 500 mg 07/02/22 13:21 07/03/22 08:55 Calcium Carbonate (Tums) 500 Mg (200 Mg Elemental) PO 500 mg Q6H PRN Administration Indigestion Chlorthalidone 12.5 mg 06/29/22 09:00 07/04/22 09:29 Chlorthalidone 12.5 Mg Tab PO 12.5 mg DAILY VERONICA Administration Dexamethasone Sodium Phosphate 4 mg 06/30/22 00:00 07/04/22 06:31 Dexamethasone Sod Phos Inj 4 Mg/Ml Vial IV PUSH 4 mg Q6HR VERONICA Administration Docusate Sodium 100 mg 06/28/22 21:00 07/04/22 09:29 Docusate Sodium 100 Mg Capsule PO 100 mg Q12HR VERONICA Administration Hydromorphone HCl 1 mg 07/03/22 14:57 Hydromorphone Hcl Inj (*Crx) 1 Mg/Ml Syr IV PUSH Q6H PRN Pain Rated 7-10 Irbesartan 300 mg 06/28/22 21:00 07/03/22 20:30 Irbesartan 150 Mg Tablet PO 300 mg HS VERONICA Administration Melatonin 5 mg 06/28/22 21:00 07/03/22 20:30 Melatonin 5 Mg Tablet PO 5 mg HS VERONICA Administration Metformin HCl 500 mg 06/28/22 21:00 07/03/22 20:30 Metformin Hcl Xr 500 Mg Tab.Sr.24h PO 500 mg HS VERONICA Administration Non-Formulary Medication 200 mg 06/28/22 16:49 Testosterone SUB-Q 07/28/22 16:48 ONCE VERONICA Ondansetron HCl 4 mg 06/28/22 16:49 07/03/22 19:07 Ondansetron Inj 4 Mg/2 Ml Vial IV PUSH 4 mg Q8H PRN Administration Nausea And Vomiting Oxycodone HCl 5 mg 07/03/22 14:55 Oxycodone Hcl (*Crx) 5 Mg Tab Ir PO Q4H PRN Pain Rated 4-6 Oxycodone HCl 10 mg 07/03/22 14:55 07/04/22 06:32 Oxycodone Hcl (*Crx) 5 Mg Tab Ir PO
[2022-07-04] MEDS: PREGABALIN (*CRX) 75 MG CAPSULE 150 MG PO (11:34)
[2022-07-04 15:09] VITALS: BP 131/82; PULSE 79; RESP 16; TEMP 36.2; O2SAT 100
[2022-07-04] MEDS: TIZANIDINE HCL 2 MG TABLET PO (20:33)
[2022-07-04] MEDS: AMITRIPTYLINE HCL 10 MG TABLET 20 MG PO (20:34)
[2022-07-04] MEDS: ROSUVASTATIN 10 MG TABLET PO (20:34)
[2022-07-04] MEDS: metFORMIN HCL XR 500 MG TAB.SR.24H PO (20:35)
[2022-07-04] MEDS: TAMSULOSIN HCL 0.4 MG CAPSULE PO (20:35)
[2022-07-04] MEDS: MELATONIN 5 MG TABLET PO (20:35)
[2022-07-04] MEDS: IRBESARTAN 150 MG TABLET 300 MG PO (20:35)
[2022-07-04 22:35] VITALS: PULSE 86; O2SAT 97
[2022-07-05] MEDS: PREGABALIN (*CRX) 75 MG CAPSULE 300 MG PO ×2 (08:47→17:36)
[2022-07-05] MEDS: oxyCODONE HCL (*CRX) 5 MG TAB IR 10 MG PO ×3 (08:47→17:35)
[2022-07-05] MEDS: DOCUSATE SODIUM 100 MG CAPSULE PO ×2 (08:48→20:32)
[2022-07-05] MEDS: DEXAMETHASONE SOD PHOS INJ 4 MG/ML VIAL IV PUSH ×2 (08:48→20:31)
[2022-07-05] MEDS: CHLORTHALIDONE 12.5 MG TAB PO (08:48)
[2022-07-05] MEDS: TIZANIDINE HCL 2 MG TABLET PO (11:05)
--- NOTE | 2022-07-05 12:50 | WPDNEUROSGPN ---
Progress Note: A&P Assessment and Plan (1) Status post lumbar spinal fusion: Code(s): Z98.1 - Arthrodesis status Status: Acute (2) Dural tear: Code(s): G96.11 - Dural tear Status: Acute (3) Spondylolisthesis at L4-L5 level: Code(s): M43.16 - Spondylolisthesis, lumbar region Status: Acute Plan Mr. Lake is overall doing well without signs of CSF leak at this time. I have encouraged him to be in the chair as much as possible today. Will change Zanaflex to Flexeril 10mg TID and obtain a Lumbar xray, AP/Lat views to check hardware placement. Continue with PT/OT. Will consider discharge home tomorrow if pain more controlled, possibly tomorrow.. Subjective Date/time seen: 07/05/22 12:50 Interval history: Sitting in recliner. Walked in the room and hallway with therapy, tolerated well. Denies headache, does have back discomfort, not severe or intense. He is with complaints of significant right buttock pain extending to posterior knee. Exam Narrative: AOX4 5/5 to lower extremities Sensation intact to light touch to BLE's Dressing to lumbar spine is clean, dry and intact. Incision appears without drainage, redness and without tenderness. Objective Data Vital Signs Vital Signs: Vital Signs - 24 hr 07/04/22 15:09 07/04/22 20:00 07/04/22 22:35 Temperature 36.2 C L Pulse Rate 79 86 Respiratory Rate 16 Blood Pressure 131/82 Pulse Oximetry 100 97 Oxygen Delivery Room Air Autopap 07/05/22 08:00 Temperature Pulse Rate Respiratory Rate Blood Pressure Pulse Oximetry Oxygen Delivery Room Air Intake/Output Intake/Output: Intake & Output 07/02/22 07/03/22 07/04/22 07/05/22 23:59 23:59 23:59 23:59 Intake Total 960 720 600 240 Output Total 2000 500 Balance -1040 720 100 240 Meds/Results Medications: Active Medications Generic Name Dose Route Start Last Admin Trade Name Freq PRN Reason Stop Dose Admin Acetaminophen 1,000 mg 07/03/22 15:00 07/05/22 08:48 Acetaminophen 500 Mg Tablet PO Not Given Q6H VERONICA Al Hydrox/Mg Hydrox/Simethicone 20 ml 06/28/22 16:49 Mag Hydrox/Al Hydrox/Simeth 30 Ml Udc PO Q4H PRN Indigestion/Heartburn Amitriptyline HCl 20 mg 06/28/22 21:00 07/04/22 20:34 Amitriptyline Hcl 10 Mg Tablet PO 20 mg QHS VERONICA Administration Bisacodyl 10 mg 06/28/22 16:49 Bisacodyl 10 Mg Suppository RECTAL DAILY PRN Constipation Calcium Carbonate 500 mg 07/02/22 13:21 07/03/22 08:55 Calcium Carbonate (Tums) 500 Mg (200 Mg Elemental) PO 500 mg Q6H PRN Administration Indigestion Chlorthalidone 12.5 mg 06/29/22 09:00 07/05/22 08:48 Chlorthalidone 12.5 Mg Tab PO 12.5 mg DAILY VERONICA Administration Dexamethasone Sodium Phosphate 4 mg 07/04/22 21:00 07/05/22 08:48 Dexamethasone Sod Phos Inj 4 Mg/Ml Vial IV PUSH 4 mg Q12HR VERONICA Administration Docusate Sodium 100 mg 06/28/22 21:00 07/05/22 08:48 Docusate Sodium 100 Mg Capsule PO 100 mg Q12HR VERONICA Administration Hydromorphone HCl 1 mg 07/03/22 14:57 Hydromorphone Hcl Inj (*Crx) 1 Mg/Ml Syr IV PUSH Q6H PRN Pain Rated 7-10 Irbesartan 300 mg 06/28/22 21:00 07/04/22 20:35 Irbesartan 150 Mg Tablet PO 300 mg HS VERONICA Administration Melatonin 5 mg 06/28/22 21:00 07/04/22 20:35 Melatonin 5 Mg Tablet PO 5 mg HS VERONICA Administration Metformin HCl 500 mg 06/28/22 21:00 07/04/22 20:35 Metformin Hcl Xr 500 Mg Tab.Sr.24h PO 500 mg HS VERONICA Administration Non-Formulary Medication 200 mg 06/28/22 16:49 Testosterone SUB-Q 07/28/22 16:48 ONCE VERONICA Ondansetron HCl 4 mg 06/28/22 16:49 07/03/22 19:07 Ondansetron Inj 4 Mg/2 Ml Vial IV PUSH 4 mg Q8H PRN Administration Nausea And Vomiting Oxycodone HCl 5 mg 07/03/22 14:55 Oxycodone Hcl (*Crx) 5 Mg Tab Ir PO Q4H PRN Pain Rated 4-6 Oxycodone HCl 10 mg 07/03/22 14:55 07/05/22 08:47 Ox
[2022-07-05] MEDS: PREGABALIN (*CRX) 75 MG CAPSULE 150 MG PO (12:57)
[2022-07-05 14:13] VITALS: BP 134/57; PULSE 101; RESP 20; TEMP 36.8; O2SAT 100
[2022-07-05] MEDS: CYCLOBENZAPRINE HCL 10 MG TABLET PO ×2 (15:08→20:31)
[2022-07-05] MEDS: ACETAMINOPHEN 500 MG TABLET 1000 MG PO ×2 (15:08→20:31)
[2022-07-05 20:07] VITALS: BP 126/76; PULSE 81; RESP 16; TEMP 36.6; O2SAT 98
[2022-07-05] MEDS: metFORMIN HCL XR 500 MG TAB.SR.24H PO (20:31)
[2022-07-05] MEDS: oxyCODONE HCL (*CRX) 5 MG TAB IR PO (20:31)
[2022-07-05] MEDS: MELATONIN 5 MG TABLET PO (20:32)
[2022-07-05] MEDS: IRBESARTAN 150 MG TABLET 300 MG PO (20:32)
[2022-07-05] MEDS: AMITRIPTYLINE HCL 10 MG TABLET 20 MG PO (20:32)
[2022-07-05] MEDS: TAMSULOSIN HCL 0.4 MG CAPSULE PO (20:32)
[2022-07-05] MEDS: ROSUVASTATIN 10 MG TABLET PO (20:32)
[2022-07-06 02:01] VITALS: PULSE 80; RESP 12; O2SAT 98
[2022-07-06 04:35] VITALS: BP 140/84; PULSE 64; RESP 18; TEMP 36.4; O2SAT 98
[2022-07-06] MEDS: CYCLOBENZAPRINE HCL 10 MG TABLET PO ×2 (07:10→13:48)
--- NOTE | 2022-07-06 08:23 | PCOTNOTE ---
Attempted to see patient this am, however patient refused due to pain. Pt reported 8/10 pain in back and a knot in his stomach. Pt stood up and began ambulating around the room with walker. Pt stated he's been getting up to use bathroom on his own since yesterday. Pt declined ADLs at this time, It's nothing against you, but if I shower I'll just wait until I get home.
[2022-07-06] MEDS: oxyCODONE HCL (*CRX) 5 MG TAB IR 10 MG PO ×2 (11:14→17:22)
[2022-07-06] MEDS: ACETAMINOPHEN 500 MG TABLET 1000 MG PO ×2 (11:16→14:00)
[2022-07-06] MEDS: CHLORTHALIDONE 12.5 MG TAB PO (11:16)
[2022-07-06] MEDS: DOCUSATE SODIUM 100 MG CAPSULE PO (11:16)
[2022-07-06] MEDS: PREGABALIN (*CRX) 75 MG CAPSULE 300 MG PO ×2 (11:16→17:22)
[2022-07-06] MEDS: DEXAMETHASONE SOD PHOS INJ 4 MG/ML VIAL IV PUSH (11:16)
--- NOTE | 2022-07-06 11:16 | PC.NURSE ---
medications given late. [employer] down.
[2022-07-06] MEDS: PREGABALIN (*CRX) 75 MG CAPSULE 150 MG PO (13:47)
--- NOTE | 2022-07-06 15:16 | WPDNEUROSGPN ---
Progress Note: A&P Assessment and Plan (1) Status post lumbar spinal fusion: Code(s): Z98.1 - Arthrodesis status Status: Acute (2) Dural tear: Code(s): G96.11 - Dural tear Status: Acute (3) Spondylolisthesis at L4-L5 level: Code(s): M43.16 - Spondylolisthesis, lumbar region Status: Acute Plan Mr. Lake is overall doing well without signs of CSF leak at this time. Recommended RN to administer suppository for complaints of constipation as oral meds are ineffective. I have encouraged him to be in the chair and out of bed as much as possible. Encouraged oral fluid intake. Maintain Flexeril 10mg TID and oral narcotic medications. Continue with PT/OT. Can discharge home this evening. Subjective Date/time seen: 07/06/22 12:16 Interval history: Laying in bed. Walked in the room independently today and tolerated well. Denies headache, does have back discomfort, not severe or intense. He remains with complaints of right buttock pain extending to posterior knee. Flexeril started yesterday, unable to notice a difference as he has only taken 2 doses. Lumbar xray reviewed, expected changes noted from fusion. Review of Systems Review of Systems: All systems reviewed & are unremarkable except as noted in HPI and below Exam Narrative: AOX4 5/5 to lower extremities Sensation intact to light touch to BLE's Dressing to lumbar spine is clean, dry and intact. Incision appears without drainage, redness and without tenderness. Objective Data Vital Signs Vital Signs: Vital Signs - 24 hr 07/05/22 20:07 07/05/22 20:00 07/06/22 02:01 Temperature 36.6 C Pulse Rate 81 80 Respiratory Rate 16 12 Blood Pressure 126/76 Pulse Oximetry 98 98 Oxygen Delivery Room Air Autopap 07/06/22 04:35 07/06/22 08:00 Temperature 36.4 C Pulse Rate 64 Respiratory Rate 18 Blood Pressure 140/84 Pulse Oximetry 98 Oxygen Delivery Room Air Intake/Output Intake/Output: Intake & Output 07/03/22 07/04/22 07/05/22 07/06/22 23:59 23:59 23:59 23:59 Intake Total 398 981 9777 580 Output Total 500 Balance 760 570 2912 580 Meds/Results Medications: Active Medications Generic Name Dose Route Start Last Admin Trade Name Amos PRN Reason Stop Dose Admin Acetaminophen 1,000 mg 07/03/22 15:00 07/06/22 14:00 Acetaminophen 500 Mg Tablet PO 1,000 mg Q6H VERONICA Administration Al Hydrox/Mg Hydrox/Simethicone 20 ml 06/28/22 16:49 Mag Hydrox/Al Hydrox/Simeth 30 Ml Udc PO Q4H PRN Indigestion/Heartburn Amitriptyline HCl 20 mg 06/28/22 21:00 07/05/22 20:32 Amitriptyline Hcl 10 Mg Tablet PO 20 mg QHS VERONICA Administration Bisacodyl 10 mg 06/28/22 16:49 Bisacodyl 10 Mg Suppository RECTAL DAILY PRN Constipation Calcium Carbonate 500 mg 07/02/22 13:21 07/03/22 08:55 Calcium Carbonate (Tums) 500 Mg (200 Mg Elemental) PO 500 mg Q6H PRN Administration Indigestion Chlorthalidone 12.5 mg 06/29/22 09:00 07/06/22 11:16 Chlorthalidone 12.5 Mg Tab PO 12.5 mg DAILY VERONICA Administration Cyclobenzaprine HCl 10 mg 07/05/22 14:00 07/06/22 13:48 Cyclobenzaprine Hcl 10 Mg Tablet PO 10 mg Q8HR VERONICA Administration Dexamethasone Sodium Phosphate 4 mg 07/04/22 21:00 07/06/22 11:16 Dexamethasone Sod Phos Inj 4 Mg/Ml Vial IV PUSH 4 mg Q12HR VERONICA Administration Docusate Sodium 100 mg 06/28/22 21:00 07/06/22 11:16 Docusate Sodium 100 Mg Capsule PO 100 mg Q12HR VERONICA Administration Hydromorphone HCl 1 mg 07/03/22 14:57 Hydromorphone Hcl Inj (*Crx) 1 Mg/Ml Syr IV PUSH Q6H PRN Pain Rated 7-10 Irbesartan 300 mg 06/28/22 21:00 07/05/22 20:32 Irbesartan 150 Mg Tablet PO 300 mg HS VERONICA Administration Melatonin 5 mg 06/28/22 21:00 07/05/22 20:32 Melatonin 5 Mg Tablet PO 5 mg HS VERONICA Administration Metformin HCl 500 mg 06/28/22 21:00 07/05/22 20:31 Metformin Hcl Xr 500 Mg Tab.Sr.24h
[2022-07-06 15:55] VITALS: BP 122/69; PULSE 78; RESP 18; TEMP 37.2; O2SAT 99
--- NOTE | 2022-07-31 21:22 | PM.DS ---
DS: Admitting Diagnosis Discharge Date 07/06/22 Admitting Diagnosis L4-5 spondylosis and foraminal stenosis DS: Discharge Diagnosis Discharge Diagnosis (1) Status post lumbar spinal fusion: Code(s): Z98.1 - Arthrodesis status Status: Acute (2) Dural tear: Code(s): G96.11 - Dural tear Status: Acute (3) Foraminal stenosis of lumbar region: Code(s): M48.061 - Spinal stenosis, lumbar region without neurogenic claudication Status: Acute (4) Spondylolisthesis at L4-L5 level: Code(s): M43.16 - Spondylolisthesis, lumbar region Status: Acute (5) Lumbar spondylosis: Code(s): M47.816 - Spondylosis without myelopathy or radiculopathy, lumbar region Status: Acute DS: Summary Hospital Course Hospital Course: patient was taken the operating room on 06/28/2022 where an L4-5 posterior lumbar interbody fusion was performed. This operation was complicated by complex dural tear. Adequate repair was difficult and was achieved by fat graft and Tisseel. He was sent to the floor postoperatively. He had a severe headache which lasted for 3 or 4 days. He was kept on flat bed rest for 3 days and then his head was gradually elevated. His headache significantly resolved back to the normal. He had some right leg pain in the thigh area which became more manageable throughout his hospitalization. He never had any leaking from the skin. He was able to be discharged on 05/05 23. Physical occupational therapy had been involved in his care. His Wright catheter was removed on postop day 3. Her at the time of his discharge he was eating, ambulating and emptying his bladder his pain was under control with by mouth pain medicine. His wounds remained clean, dry and intact. He was afebrile stable vital signs. He was therefore allowed to be discharged to home. Status at Discharge Functional status at discharge: independent ambulation Time Spent with Patient Time attestation: Total time spent providing and/or coordinating discharge services: Discharge Plan Discharge Attending physician on discharge: Johnnie Espinal Consulting providers: Calvin Chan ; Cristopher Kerr V. ; Gris Luna Discharging Clinician: Robert Manjarrez Anticipated Discharge Date/Time: 07/06/22 21:34 Patient Disposition: Home, Self-Care Activity: october shower Diet: regular Wound Care Instructions: incision open to air Discharge Instructions: Care Coordination: Patient to have [facility] for PT and OT eval and treat. They will contact you to schedule their first visit. Their phone number is [phone], if you have any questions or concerns. Patient Instructions: Antibiotic Form Stand Alone Forms: General Discharge Information Follow-up/Referrals: Johnnie Espinal MD [Physician] - Call for Appointment Discharge Medications: New methylprednisolone [Medrol (Rory)] 4 mg tablets,dose pack See Rx Instructions .ROUTE .COMPLEX Qty: 21 0RF Rx Instructions: orally per package directions methylprednisolone [Medrol (Rory)] 4 mg tablets,dose pack See Rx Instructions .ROUTE .COMPLEX Qty: 21 0RF Rx Instructions: orally per package directions tizanidine 2 mg capsule 2 mg PO Q8H PRN (Reason: muscle spasticity) Qty: 60 0RF Rx Instructions: Take 1-2 capsules every 8 hours as needed for muscle spasm sennosides-docusate sodium [Senna with Docusate Sodium] 8.6-50 mg tablet 1 tab-cap PO BID 14 Days Qty: 28 0RF Continued tamsulosin 0.4 mg capsule 0.4 mg PO HS amitriptyline 10 mg tablet 20 mg PO QHS testosterone 200 mg pellet 200 mg subcut ONCE Rx Instructions: as a single dose irbesartan 300 mg tablet 300 mg PO HS melatonin 5 mg capsule 5 mg PO HS chlorthalidone 25 mg tablet 12.5 mg PO DAILY metformin 500 mg tablet extended release 24 hr 500 mg PO HS rosuvastatin 10 mg tablet 10 mg PO HS
== END 2022-07-06 17:45 | disposition home or self-care (01) | DRG 460 ==
LOC: ANH3MED 16:52
PROVIDERS: Admitting Provider Neurological Surgery; PCP Family Medicine; Visit Provider Nurse Practitioner Adult Health
PROC: (CPT 22612; principal; 2022-06-28 09:30)
DX: M48.061 Spinal stenosis, lumbar region without neurogenic claudication (principal); Z68.41 Body mass index [BMI] 40.0-44.9, adult; G97.41 Accidental puncture or laceration of dura during a procedure; M43.16 Spondylolisthesis, lumbar region; M47.816 Spondylosis without myelopathy or radiculopathy, lumbar region; E66.01 Morbid (severe) obesity due to excess calories; G47.33 Obstructive sleep apnea (adult) (pediatric); E11.9 Type 2 diabetes mellitus without complications; K59.00 Constipation, unspecified; Z79.84 Long term (current) use of oral hypoglycemic drugs; Z79.899 Other long term (current) drug therapy; Z91.041 Radiographic dye allergy status; Z91.013 Allergy to seafood; Z83.3 Family history of diabetes mellitus; Z82.49 Family history of ischemic heart disease and other diseases of the circulatory system
CPT/HCPCS: 72100; 82948; 97161; 97165; 97530; 97535; 99199; A9270; C1713; J0330; J0690; J1100; J1170; J2250; J2405; J2704; J2710; J3010; J7120

== ENCOUNTER 2023-01-10 00:22 | Day surgery (SDC) | payer BC, SELFPAY ==
[2022-12-29 11:09] VITALS: BMI 39.0
[2023-01-10 06:10] VITALS: BP 147/93; PULSE 91; RESP 18; TEMP 36.3; O2SAT 99; BMI 38.4
[2023-01-10] MEDS: LACTATED RINGERS 1,000 ML 150 ML IV CONT (06:35)
--- NOTE | 2023-01-10 06:58 | WPDANESEPPF ---
Anes - Initial Pre Proc Eval Procedure: Operation Date: 01/10/23 07:30 Proposed Procedures p Esophagogastroduodenoscopy & Colonoscopy - Anastacio Haider MD Date/Time: 01/10/23 06:58 Surgeon: Anastacio Haider MD Pre Op Diagnosis: epigastric pain ,abdom.distension,hx colon polyps Patient Data Age: 62 Gender: M Height: 1.78 m Weight: 121.5 kg Last Vital Signs Temp 36.3 C L 01/10/23 06:10 Pulse 91 01/10/23 06:10 Resp 18 01/10/23 06:10 BP 147/93 H 01/10/23 06:10 Pulse Ox 99 01/10/23 06:10 O2 Del Method Room Air 01/10/23 06:10 Allergies Allergy/AdvReac Type Severity Reaction Status Date / Time shellfish derived Allergy Severe Anaphylaxis Verified 01/10/23 06:17 iodine Allergy Mild Anaphylaxis Verified 01/10/23 06:17 Home Medications Medication Instructions Recorded Confirmed Type irbesartan 300 mg tablet 300 mg PO HS 12/20/21 01/10/23 History melatonin 5 mg capsule 5 mg PO HS 12/20/21 01/10/23 History tamsulosin 0.4 mg capsule 0.4 mg PO HS 12/20/21 01/10/23 History testosterone 200 mg implant pellet 200 mg subcut ONCE 12/20/21 01/10/23 History chlorthalidone 25 mg tablet 12.5 mg PO DAILY 06/01/22 01/10/23 History rosuvastatin 10 mg tablet 10 mg PO HS 06/01/22 01/10/23 History amitriptyline 10 mg tablet 30 mg PO QHS 12/22/22 01/10/23 History meloxicam 15 mg tablet 15 mg PO DAILY 12/22/22 01/10/23 History dulaglutide 1.5 mg/0.5 mL 1.5 mg subcut WEEKLY 12/29/22 01/10/23 History subcutaneous pen injector (Trulicity) Patient hx anesthesia problems: none Family hx anesthesia problems: other (father slow to awaken) Results Review: All pre-operative results and documents have been reviewed as part of the pre-operative evaluation. [facility] Past Medical History Medical History Bloating BPH (benign prostatic hyperplasia) Chronic narcotic use Colon polyp Diabetes Elevated liver enzymes Epigastric pain Foraminal stenosis of lumbar region HTN (hypertension) Hypercholesterolemia Lumbar spondylosis Morbid obesity with BMI of 40.0-44.9, adult REGGIE on CPAP Spondylolisthesis at L4-L5 level Surgical History Surgical History H/O eye surgery H/O knee surgery H/O shoulder surgery Hx of appendectomy Family History Family History Other Diabetes mellitus Heart disease Social History Social History Smoking status: Never smoker Alcohol intake: current Alcohol use details: rare use Substance use: never Substance use type: does not use Living arrangements: with family Spiritual care concerns: No Anes - Eval Final PreProcedure Day of Procedure 01/10/23 06:58 Patient weight: obese Heart: regular rate and rhythm Lungs: clear to auscultation Airway: Mallampati scale class II Neurological: alert and oriented Last oral intake: >/= 8 hours ASA classification: III Emergent: no Anesthetic plan: proceed Anesthesia type and monitoring: general GIVS and standard monitoring Results Review: All pre-operative results and documents have been reviewed as part of the pre-operative evaluation. Informed Consent: The patient's anesthetic plan and its attendant risks and benefits were discussed with the patient/family/POA. Questions were solicited and answers provided to the satisfaction of the patient/family/POA.
--- NOTE | 2023-01-10 07:23 | WPDHPUPDATE1 ---
History and Physical Update Update Date/Time: 01/10/23 07:23 History and Physical has been reviewed, including an updated exam of the patient. There are NO changes in the patient's condition. Risks, benefits, and alternatives have been discussed and questions answered. Patient agrees to proceed with procedure.
--- NOTE | 2023-01-10 07:41 | SUR.OPER ---
EGD START: 733; END: 736. COLONOSCOPY START: 740; END: 075.
[2023-01-10 07:56] VITALS: BP 107/70; PULSE 89; RESP 17; O2SAT 95
[2023-01-10 08:06] VITALS: BP 124/68; PULSE 101; RESP 15; O2SAT 96
[2023-01-10 08:16] VITALS: BP 127/81; PULSE 87; RESP 20; O2SAT 96
== END 2023-01-10 08:28 | disposition home or self-care (01) ==
PROVIDERS: PCP Family Medicine; Visit Provider Internal Medicine Gastroenterology
PROC: 0DJ08ZZ Inspection of Upper Intestinal Tract, Via Natural or Artificial Opening Endoscopic (ICD-10-PCS; CPT 43235; principal; 2023-01-10 07:30)
DX: Z12.11 Encounter for screening for malignant neoplasm of colon (principal); D12.0 Benign neoplasm of cecum; D12.3 Benign neoplasm of transverse colon; K64.8 Other hemorrhoids; K29.70 Gastritis, unspecified, without bleeding; I10 Essential (primary) hypertension; E78.00 Pure hypercholesterolemia, unspecified; G47.33 Obstructive sleep apnea (adult) (pediatric); E11.9 Type 2 diabetes mellitus without complications; M47.816 Spondylosis without myelopathy or radiculopathy, lumbar region; N40.0 Benign prostatic hyperplasia without lower urinary tract symptoms; E66.9 Obesity, unspecified; Z68.38 Body mass index [BMI] 38.0-38.9, adult; Z79.899 Other long term (current) drug therapy
CPT/HCPCS: 45385; 43239; 88305; J2704; J7120

== ENCOUNTER 2023-03-03 08:59 | Outpatient (CLI) | payer BC, SELFPAY ==
--- NOTE | ~2023-03-03 | NM_ITS ---
EXAM: NM gastric emptying study DATE: 03/03/2023 13:36 INDICATION: Abdominal distention TECHNIQUE: A gastric emptying study was performed using the methodology of Chintan DUNN, et al. J Nucl Med 2007; 48:568-572. The patient was given a meal consisting of 2 scrambled eggs labeled with 1.037 mCi Tc-99m sulfur colloid, 2 slices of toast, two packages of jam, and approximately 120 mL of water . Simultaneous anterior and posterior 1-min images of the abdomen were obtained with the patient supi ne at multiple time points over a total period of 4 hours. The geometric mean of anterior and posteri or views was determined, and the percentage retention was calculated for each time point. COMPARISON: None. FINDINGS: Gastric retention of the radiotracer-labeled meal was 72%, 37%, and 15% at the 1-hour, 2-hour, and 4- hour time points, respectively. With this technique, apparent rapid gastric emptying is suggested by <30% gastric retention at 1 hour. Delayed gastric emptying is defined by gastric retention of >90% at 1 hour, >60% retention at 2 hours, or >10% retention at 4 hours. IMPRESSION: 1. Delayed gastric emptying. Reviewed, dictated and finalized at location A.
== END 2023-03-03 09:00 | disposition home or self-care (01) ==
LOC: ANHIMG 09:00
PROVIDERS: PCP Family Medicine; Visit Provider Nurse Practitioner Family
DX: R14.0 Abdominal distension (gaseous) (principal); K30 Functional dyspepsia
CPT/HCPCS: 78264; A9541

== ENCOUNTER 2023-03-24 09:22 | Outpatient (CLI) | payer BC, SELFPAY ==
--- NOTE | ~2023-03-24 | CT_ITS ---
EXAMINATION: CT abdomen pelvis wo con DATE: 03/24/2023 11:36 INDICATION: Gaseous abdominal distention TECHNIQUE: Computed tomography (CT) of the abdomen and pelvis was performed without intravenous contr ast. Automated exposure control and iterative reconstruction technique were employed. Exam dose: 129 9.77 mGy-cm total exam DLP. COMPARISON: 03/03/2023 gastric emptying study 04/2021 CT abdomen pelvis FINDINGS: The lung bases are clear of infiltrate or consolidation. Normal heart size. No pericardial or pleural effusion. The liver, gallbladder, bile ducts, spleen, pancreas and pancreatic duct are unremarkable with the ex ception of a single small pancreatic tail calcification which might indicate minimal chronic pancreat itis. Normal morphology of the adrenal glands. Multiple bilateral nonobstructing kidney stones no ureteral calculus or hydroureteronephrosis. No renal space occupying mass lesion is evident on this limited noncontrast examination. The urinary bladder is unremarkable. There is moderate prostate enlargement and calcification. Normal caliber of the abdominal aorta. No intraperitoneal or retroperitoneal or pelvic mass lesion or adenopathy or ascites is detected. No evidence of appendicitis. No bowel obstruction, bowel wall thickening, pneumatosis or intraperiton eal free air is detected. Diffuse idiopathic skeletal hyperostosis of the thoracic spine. Status post posterior and interbody surgical fusion at L4-5. No suspicious osteolytic or osteoblastic lesions are noted. IMPRESSION: Bilateral nonobstructive nephrolithiasis Possible minimal chronic pancreatitis Diffuse idiopathic skeletal hyperostosis of the thoracic spine Status post posterior and interbody surgical fusion at L4-5 Reviewed, dictated and finalized at Location A. Reviewed, dictated and finalized at location B.
== END 2023-03-24 09:23 | disposition home or self-care (01) ==
PROVIDERS: PCP Family Medicine; Referring Provider Internal Medicine Gastroenterology; Visit Provider Family Medicine
DX: M48.14 Ankylosing hyperostosis [Forestier], thoracic region (principal); M43.26 Fusion of spine, lumbar region; R11.0 Nausea; R14.0 Abdominal distension (gaseous); N20.0 Calculus of kidney
CPT/HCPCS: 74176

== ENCOUNTER 2023-04-23 10:15 | Outpatient (CLI) | payer BC, SELFPAY ==
--- NOTE | ~2023-04-23 | MR_ITS ---
EXAMINATION: MR lumbar spine wo con DATE: 04/23/2023 11:22 INDICATION: Arthrodesis status. Back pain. TECHNIQUE: Magnetic resonance imaging (MRI) of the lumbar spine was performed without intravenous con trast. COMPARISON: Lumbar spine MRI 11/09/21, CT abdomen and pelvis 03/24/2023 FINDINGS: There is 3 degrees levocurvature of lumbar spine. There is 3 mm anterolisthesis of L4 on L5 . There is mild chronic anterior wedging of T12 and L1 vertebral bodies. There are changes of anterio r and posterior fusion procedures at L4-L5 with interbody devices and pedicle screws. There is mildly decreased disc height at L3-L4. The distal spinal cord signal intensity is normal. The conus medulla ris is at L2. There is clumping of the cauda equina at L4-L5, consistent with arachnoiditis. The foll owing disc levels are specifically discussed: L1-L2: The disc does not extend beyond the endplate margin. There is mild bilateral facet joint osteo arthritis. There is no neural foraminal stenosis. There is no central canal stenosis. L2-L3: The disc is bulging. There is moderate bilateral facet joint osteoarthritis. There is mild annmarie ateral neural foraminal stenosis. There is no central canal stenosis. L3-L4: The disc is bulging and has an annular fissure. There is mild bilateral facet joint osteoarthr itis. There is moderate right and mild left neural foraminal stenosis. There is mild central canal st enosis. L4-L5: There is no facet joint hypertrophy. There is mild bilateral neural foraminal stenosis. There is no central canal stenosis. L5-S1: The disc does not extend beyond the endplate margin. There is moderate right and severe left f acet joint osteoarthritis. There is mild bilateral neural foraminal stenosis. There is no central can al stenosis. IMPRESSION: 1. Moderate right neural foraminal stenosis at L3-L4. Otherwise mild lumbar spondylosis. 2. Anterior and posterior fusion procedures at L4-L5. 3. Arachnoiditis. Reviewed, dictated and finalized at location A. 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 Moderate right neural foraminal stenosis at L3-L4. Otherwise mild lumbar spo ndylosis. 2. Anterior and posterior fusion procedures at L4-L5. 3. Arachnoiditis.
== END 2023-04-23 10:16 | disposition home or self-care (01) ==
PROVIDERS: PCP Family Medicine; Visit Provider Neurological Surgery
DX: Z98.1 Arthrodesis status (principal); M47.892 Other spondylosis, cervical region; G03.9 Meningitis, unspecified
CPT/HCPCS: 72148

== ENCOUNTER 2023-09-17 07:13 | Outpatient (CLI) | payer BC, SELFPAY ==
--- NOTE | ~2023-09-17 | MR_ITS ---
EXAMINATION: MR thoracic spine wo con DATE: 09/17/2023 07:54 INDICATION: Spinal stenosis TECHNIQUE: Magnetic resonance imaging (MRI) of the thoracic spine was performed without intravenous c ontrast. Sagittal localizer T1-weighted FSE of the cervicothoracic spine was obtained. Thoracic spine sequences included sagittal T2-weighted FSE, sagittal T1-weighted SE, Sagittal T2-weighted FS FSE, a nd axial T2-weighted FSE. COMPARISON: None FINDINGS: Alignment is normal. 20% anterior vertebral body height loss at T8 and 10% anterior vertebral body he ight loss at T6, T7 and T9. Mild fibrovascular degenerative endplate changes anteriorly at a few leve ls the mid and lower thoracic spine. Small T1 hyperintense hemangioma at T8. Moderate disc height los s at T8-T9 and T9-T10. Mild disc height loss at T3-T4 through T7-T8 and at T10-T11 and T11-T12. Small left paracentral disc protrusion which mildly indents the left ventral surface of the cord but resul ts in only minimal central canal stenosis at T7-T8. There is normal spinal cord signal. The conus ter minates the below the field of imaging which extends to the inferior margin of L1. There is multileve l mild facet osteoarthritis throughout the thoracic spine. No neural foraminal stenosis. There are ri ght anterior bridging osteophytes at multiple levels throughout the thoracic spine consistent with di ffuse idiopathic skeletal hyperostosis (DISH). Paravertebral soft tissues are unremarkable. IMPRESSION: 1. Mild to moderate thoracic spondylosis with no neural foraminal stenosis and only minimal central c anal stenosis resulting from a small left paracentral disc protrusion at T7-T8. Reviewed, dictated and finalized at location A. IMPRESSION: 1. Mild to moderate thoracic spondylosis with no neural foraminal stenosis and only minimal central canal stenosis resulting from a small left paracentral dis c protrusion at T7-T8.
== END 2023-09-17 07:14 | disposition home or self-care (01) ==
LOC: ANHIMG 07:16
PROVIDERS: PCP Family Medicine; Visit Provider Family Medicine
DX: M48.061 Spinal stenosis, lumbar region without neurogenic claudication (principal); G89.29 Other chronic pain; M54.6 Pain in thoracic spine; R20.2 Paresthesia of skin; M43.04 Spondylolysis, thoracic region
CPT/HCPCS: 72146

== ENCOUNTER 2025-04-08 09:46 | Outpatient (CLI) | payer BC, SELFPAY ==
--- NOTE | ~2025-04-08 | MR_ITS ---
EXAMINATION: MR cervical spine wo con DATE: 04/08/2025 10:24 INDICATION: Neck pain. TECHNIQUE: Magnetic resonance imaging (MRI) of the cervical spine was performed without intravenous contrast. COMPARISON: None FINDINGS: Alignment is normal. Vertebral body heights are normal. There is mildly decreased disc height at C4-C5 and C5-C6. The spinal cord signal intensity is normal. The following disc levels are specifically discussed: C2-C3: The disc does not extend beyond the endplate margin. There is moderate left uncovertebral joint osteoarthritis. There is severe bilateral facet joint osteoarthritis. There is mild left neural foraminal stenosis. There is no central canal stenosis. C3-C4: The disc is bulging. There is mild bilateral uncovertebral joint osteoarthritis. There is severe bilateral facet joint osteoarthritis. There is mild bilateral neural foraminal stenosis. There is mild central canal stenosis. C4-C5: The disc is bulging. There is mild bilateral uncovertebral joint osteoarthritis. There is moderate bilateral facet joint osteoarthritis. There is moderate right and mild left neural foraminal stenosis. There is mild central canal stenosis. C5-C6: The disc is bulging. There is severe bilateral uncovertebral joint osteoarthritis. There is mild bilateral facet joint osteoarthritis. There is mild bilateral neural foraminal stenosis. There is mild central canal stenosis. C6-C7: There is a central protrusion. There is mild bilateral uncovertebral joint osteoarthritis. There is moderate bilateral facet joint osteoarthritis. There is mild bilateral neural foraminal stenosis. There is no central canal stenosis. C7-T1: The disc does not extend beyond the endplate margin. There is no uncovertebral joint osteoarthritis. There is severe right and moderate left facet joint osteoarthritis. There is mild bilateral neural foraminal stenosis. There is no central canal stenosis. IMPRESSION: 1. Moderate cervical spondylosis. Reviewed, dictated and finalized at location E. 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
== END 2025-04-08 09:47 | disposition home or self-care (01) ==
LOC: MICIMG 09:46
PROVIDERS: PCP Family Medicine; Visit Provider Family Medicine
DX: M47.812 Spondylosis without myelopathy or radiculopathy, cervical region (principal)
CPT/HCPCS: 72141